=== PATIENT | male | born 1980 | race Two or more races ===

== ENCOUNTER 2025-05-30 11:16 | Outpatient (CLI) | payer OTHER ==
[~2025-05-30] VITALS: Ht 177.8 cm; Wt 122.5 kg
[2025-05-30] MEDS: REGADENOSON 0.4 MG/5 ML SYRG IV ONE ×2 (09:17→09:18)
--- NOTE | 2025-06-03 08:49 | DVHSR ---
APPROVED REPORT Exam: Nuclear Stress Test Indication: HX of UT and Stents BMI: 0 Stress Test Details Stress Test: Pharmacologic stress testing performed using 0.4 mg of regadenoson per 5 mL given IV ov er 10 seconds. HR Resting HR: 67 bpmMax Heart Rate (APMHR): 177.209324 bpm Max HR Achieved: 126 bpmTarget HR (85% APMHR): 150.678187 bpm % of APMHR: 71.19 Recovery HR: 74 bpm BP Resting BP: 140/72 mmHg Recovery BP: 144/82 mmHg ECG Resting ECG: Sinus Rhythm Clinical Reason for Termination: Completed protocol Nurse Comments Recieved pt. from [employer]. A/Ox4 on RA. Connected to teletypesetter monitor, VS stable. Rt IV flushes well. Reviewed POC. Pt. verbalized understanding of procedure including risks and side effects, agrees for stress testing. Lexiscan stress test performed per protocol. [employer] tech administered Cardiolite. Pt. tolerated well . Pt. stable, no change on exam. VS returned to baseline. Transferred to [employer] via wheelchair w/ te ch. Stress ECG Conclusion small basal inferiolateral wall ischemia lvef 62% NM EXAM: Myocardial Perfusion REST/STRESS Imaging Protocol: Rest Tc-99m/Stress Tc-99m 1 day Resting Data Rest SPECT myocardial perfusion imaging was performed in supine position 60 minutes following the int ravenous injection of 10.6 mCi of Tc-99m Sestamibi. Time of rest injection: 08:05 Date: 05/30/2025 Time of rest imagin:05 Date: 05/30/2025 Administration Route: IV Administration Site: Right Arm Pharmacologic Stress Pharmacologic stress test was performed by injecting Regadenoson 0.4 mg IV push followed by the intra venous injection of 30.1 mCi of Tc-99m Sestamibi. Time of stress injection: 09:20 Date: 05/30/2025 Time of stress imagin:20 Date: 05/30/2025 Administration Route: IV Administration Site: Right Arm Gated Stress SPECT was performed 60 minutes after stress injection. The images were gated to evaluate regional wall motion and calculate left ventricular ejection fracti on. Stress only was performed in the Supine position. Nuclear Conclusion Nuclear Findings: positive for ischemia small basal inferiolateral wall ischemia lvef 62%
== END 2025-05-30 17:00 | disposition home or self-care (01) ==
LOC: XYW 11:16
PROVIDERS: ATTEND Internal Medicine
DX: I25.9 Chronic ischemic heart disease, unspecified (principal); I25.2 Old myocardial infarction; Z95.5 Presence of coronary angioplasty implant and graft
CPT/HCPCS: 78452; 93017; A9500; J2785